=== PATIENT | male | born 1980 | race Caucasian/White ===

== ENCOUNTER 2017-08-23 03:39 | Emergency (ER) | payer BC ==
[2017-08-23] MEDS: AMOXICILLIN/K CLAV 875/125MG TABLET. PO (04:49)
[2017-08-23] MEDS: KETOROLAC 60 MG/2 ML INJ. IM (04:49)
== END 2017-08-23 05:06 | disposition home or self-care (01) ==
LOC: ER 03:39
DX: H66.91 Otitis media, unspecified, right ear (principal)
CPT/HCPCS: 96372; 99283; J1885